=== PATIENT | male | born 1970 | race American Indian/Alaskan Native ===

== ENCOUNTER 2019-06-18 17:48 | Emergency (ER) | payer MEDICARE ==
--- NOTE | 2019-06-18 18:24 | Event Note ---
ED Screening Note Date of service: 06/18/19 Time: 18:18 ED Screening Note: This is a 49 y.o. M. that presents to the ER with elevated blood pressure. He was sent to the ER from the [facility] today due to elevated blood pressure. PMH of HTN Patient also reports congestion and sore throat for a few days. Patient states he ran out of medication 2 weeks and not sure what he was taking. Denies chest pain, palpitations, sob, weakness This initial assessment/diagnostic orders/clinical plan/treatment(s) is/are subject to change based on patients health status, clinical progression and re- assessment by fellow clinical providers in the ED. Further treatment and workup at subsequent clinical providers discretion. Patient/guardian urged not to elope from the ED as their condition may be serious if not clinically assessed and managed. Initial orders include:
--- NOTE | 2019-06-18 20:26 | Emergency Department Report ---
ED General Adult HPI - General Chief complaint: High BP Stated complaint: BP CHECK Time Seen by Provider: 06/18/19 18:18 Source: patient Mode of arrival: Ambulatory Limitations: No Limitations - History of Present Illness Initial comments: Mr. Fregoso is a 49 yo male with hx of hypertension and depression who presents from [facility] pharmacy. He was attempting to obtain a free gift card during a health fair. In order to obtain the free gift card, he was required to have his blood pressure obtained. Readings were elevated with systolic 180-201 mmHg. He was instructed by recommendation of pharmacist to come to the emergency department for further evaluation. He has not taken his medications over a week. He no longer is under the care of her primary care physician. He's had a mild sinus headache with nasal congestion. Denies blurry vision, chest pain, paresthesias. He is unable to recall the name of his blood pressure medications. -: unknown Severity scale (0 -10): 0 Consistency: constant Improves with: none Worsens with: none Associated Symptoms: denies other symptoms Treatments Prior to Arrival: none - Related Data Previous Rx's Medication Instructions Recorded Last Taken Type amLODIPine [Norvasc] 10 mg PO DAILY 30 Days #30 tab 06/18/19 Unknown Rx hydroCHLOROthiazide [HCTZ] 25 mg PO QDAY 30 Days #30 tablet 06/18/19 Unknown Rx Allergies Allergy/AdvReac Type Severity Reaction Status Date / Time No Known Allergies Allergy Verified 06/18/19 17:49 ED Review of Systems ROS: Stated complaint: BP CHECK Other details as noted in HPI Comment: All other systems reviewed and negative Constitutional: denies: fever, malaise ENT: congestion Respiratory: denies: shortness of breath Cardiovascular: denies: chest pain Gastrointestinal: denies: abdominal pain, nausea, vomiting Neurological: headache ED Past Medical Hx - Past Medical History Previous Medical History?: Yes Hx Hypertension: Yes Hx Psychiatric Treatment: Yes (depression.) - Surgical History Past Surgical History?: No - Family History Family history: hypertension - Social History Smoking Status: Former Smoker Substance Use Type: None - Medications Home Medications: Home Medications Medication Instructions Recorded Confirmed Last Taken Type amLODIPine [Norvasc] 10 mg PO DAILY 30 Days #30 tab 06/18/19 Unknown Rx hydroCHLOROthiazide [HCTZ] 25 mg PO QDAY 30 Days #30 tablet 06/18/19 Unknown Rx ED Physical Exam - General Limitations: No Limitations General appearance: alert, in no apparent distress - Head Head exam: Present: atraumatic, normocephalic - Eye Eye exam: Present: normal appearance - ENT ENT exam: Present: mucous membranes moist - Neck Neck exam: Present: normal inspection, full ROM - Respiratory Respiratory exam: Present: normal lung sounds bilaterally. Absent: respiratory distress, wheezes, rales, rhonchi - Cardiovascular Cardiovascular Exam: Present: regular rate, normal rhythm, normal heart sounds. Absent: systolic murmur, diastolic murmur, rubs, gallop - GI/Abdominal GI/Abdominal exam: Present: soft, normal bowel sounds. Absent: distended, tenderness, guarding, rebound - Rectal Rectal exam: Present: deferred - Extremities Exam Extremities exam: Present: normal inspection - Back Exam Back exam: Present: normal inspection - Neurological Exam Neurological exam: Present: alert, oriented X3 - Psychiatric Psychiatric exam: Present: normal affect, normal mood - Skin Skin exam: Present: warm, dry, intact, normal color. Absent: rash ED Course Vital Signs 06/18/19 18:19 Temperature 98.9 F Pulse Rate 104 H Respiratory 18 Rate Blood Pressure 188/97 O2 Sat by Pulse 100 Oximetry ED Medical Decision Making - Medical Decision Making Mr. Fregoso presents with asymptomatic hypertensive urgency. I have prescribed amlodipine and hydrochlorothiazide. I have referred him to outpatient medicine physician substation inspector. Critical care attestation.: If time is entered above; I have spent that time in minutes in the direct care of this critically ill patient, excluding procedure time. ED Disposition Clinical Impression: Asymptomatic hypertensive urgency Disposition: [id number]-01 TO HOME OR SELFCARE Is pt being admited?: No Does the pt Need Aspirin: No Condition: Stable Instructions: Hypertension (ED) Additional Instructions: Please have your blood pressure check within the next 2 weeks. Prescriptions: hydroCHLOROthiazide [HCTZ] 25 mg PO QDAY 30 Days #30 tablet amLODIPine [Norvasc] 10 mg PO DAILY 30 Days #30 tab Referrals: MENDEZ KENNY MD [Staff Physician] - 3-5 Days
[2019-06-18 20:44] VITALS: BP 154/84
== END 2019-06-18 20:42 | disposition home or self-care (01) ==
LOC: ED 17:48
DX: I16.0 Hypertensive urgency (principal); I10 Essential (primary) hypertension; F32.9 Major depressive disorder, single episode, unspecified; Z79.899 Other long term (current) drug therapy; Z87.891 Personal history of nicotine dependence
CPT/HCPCS: 99282